=== PATIENT | male | born 1980 | race Caucasian/White ===

== ENCOUNTER → 2023-05-12 06:37 | Day surgery (SDC) | payer BC, SELFPAY | LOC: GI 06:37 | PROVIDERS: ATTENDING PHYSICIAN Internal Medicine Gastroenterology | DX: D12.4 Benign neoplasm of descending colon (principal); R93.3 Abnormal findings on diagnostic imaging of other parts of digestive tract; K64.8 Other hemorrhoids | CPT/HCPCS: 45385; 45380; 88305 ==

== ENCOUNTER 2023-08-11 06:28 | Day surgery (SDC) | payer BC, SELFPAY ==
[2023-08-11] VITALS (11 sets, daily range): BP systolic 116–136; BP diastolic 75–99; BMI 32.7
[2023-08-11] MEDS: NORMOSOL-R 1000 IV (13:20)
[2023-08-11] MEDS: TYLENOL 1000 MG PO (13:20)
--- NOTE | 2023-08-11 14:56 | W.SUR.PREOP ---
Pre-Operative Surgical Note
-
I have examined this patient prior to the performance of the scheduled procedure.
The patient's condition is unchanged from the time of the current History and
Physical and the patient is able to undergo the scheduled procedure.
--- NOTE | 2023-08-11 17:15 | W.IMMPOSTOP ---
Surgical Immed Post Op Note
-
Primary Surgeon: Larry Simpson MD
Assisting Surgeon: None
Pre-op Diagnosis: Umbilical hernia
Post-op Diagnosis: Same
Procedure Performed: Robotic umbilical hernia repair with mesh
Anesthesia Type: General
Specimen / Cultures: None
Estimated Blood Loss: 3 cc
Complications: None
Operative Findings: 1.2 cm umbilical hernia defect closed with a 0 V-Loc suture. A 10 x 10 cm Bard soft uncoated polypropylene mesh was used to reinforce the closure and placed in the preperitoneal space.
--- NOTE | 2023-08-11 17:25 | OR.RPT ---
Operative Report
Operative Report
Patient Name: Ryan Zheng
: 1980
Date of Operation: 08/11/2023
Preoperative Diagnosis: Umbilical hernia
Postoperative Diagnosis: Same
Procedure(s):
Robotic umbilical hernia repair with mesh (SRINI approach)
Surgeon(s):
Dr. Simpson
Delivery Table Feeder(s):
MONICO Johnson
Anesthesia: General
Estimated Blood Loss: 3 cc
Urine Output: None
Drains/Lines/Implants:
10 x 10 cm round Bard soft mesh
Specimens:
None
HPI/Surgical Indications:
This is a 43-year-old male who was seen in my office for a symptomatic umbilical bulge and diagnosed with a reducible umbilical hernia. Risks/Benefits/Alternatives were discussed at length, and the patient agreed to proceed with surgery.
Operative Findings: 1.2 cm umbilical hernia defect closed with a 0 V-Loc suture. A 10 x 10 cm Bard soft uncoated polypropylene mesh was used to reinforce the closure and placed in the preperitoneal space.
Procedure Description:
The patient was brought to the Operating Room and placed in the supine position with the arms tucked. IV antibiotics were infused and Venodyne stockings placed. Following uneventful induction of general endotracheal anesthesia, an orogastric tube
were placed. The abdomen was prepped and draped in the usual sterile fashion. The abdomen was entered using a Veress technique which required 2 passes, pneumoperitoneum to 15 mmHg was obtained without difficulty. An 8mm trochar was passed through
the abdominal wall roughly 20 cm laterally from the defect in the left upper quadrant, we then confirmed that no inadvertent injury was made while passing the trocar or Veress needle. We then placed two additional 8 mm ports in the left lower
quadrant. Bilateral tap blocks were performed. The robot was docked. We then introduced our prograsper through the inferior/left hand port and a monopolar scissors through the superior port. We then turned our attention to the hernia which had
no intra-abdominal contents. We then began taking a flap down roughly 6 cm away from the defect and roughly 11 cm in length taking care to stay in the pretransversalis plane. The preperitoneal fat was taken down off of the posterior rectus sheath
both superior and inferior to the hernia defect such that we were able to get our 'volcano sign'. We then worked on reducing the defect which contained preperitoneal fat and continued our dissection out laterally for an additional 6 to 7 cm. Once
our flap was created we introduced a ruler and a 0 V-Loc 180. The main hernia defect measured 1.2 cm. The pocket measured 11 x 11 cm. I had my call center assistant cut a 10 x 10 cm piece of Bard soft mesh marked with 0 Vicryl suture at the center, as I
closed the umbilical defect. The mesh was then sutured to the posterior rectus sheath in 4 quadrants with 2-0 vircyls to ensure good apposition. A 2-0 Monocryl was introduced which was used to close our flap. All sutures were removed. The robot
was undocked. The ports were removed under direct visualization and pneumoperitoneum was evacuated. The port sites were closed with 4-0 Monocryl followed by Dermabond. Counts were correct and overall, the patient tolerated the procedure well and
was taken to the Recovery Room postoperatively in stable condition.
I was the attending physician and performed the procedure with assistance from the PA above. The assistance of Thuy Holm was required due to the complexity of the procedure. During the procedure Thuy assisted with retraction, resection, and
closure of the wound. I was present for all portions of the case except for skin closure.
Larry Simpson MD
[2023-08-11] MEDS: DEMEROL 12.5 MG IV ×2 (17:28→17:51)
[2023-08-11] MEDS: ROXICODONE 5 MG PO (19:15)
== END 2023-08-11 19:40 | disposition home or self-care (01) ==
LOC: SDS 06:28
PROVIDERS: ATTENDING PHYSICIAN Surgery
DX: K42.9 Umbilical hernia without obstruction or gangrene (principal)
CPT/HCPCS: 49591; C1781

== ENCOUNTER → 2024-10-17 06:44 | Outpatient (REF) | payer BC, SELFPAY | LOC: HWRAD 06:44 | PROVIDERS: ATTENDING PHYSICIAN Chiropractor; FAMILY PHYSICIAN Family Medicine | DX: M99.03 Segmental and somatic dysfunction of lumbar region (principal) | CPT/HCPCS: 72110 ==